=== PATIENT | female | born 1990 | race Caucasian/White ===

== ENCOUNTER 2021-07-11 00:50 | Emergency (ER) | payer OTHER ==
[2021-07-11 01:03] VITALS: BMI 26.4
[2021-07-11 02:44] VITALS: BP 112/73; PULSE 108; TEMP 98.3
[2021-07-11 04:17] LABS: PH,URINE 7.5 (5.0-8.0); URINE APPEARANCE CLEAR; URINE BILIRUBIN NEGATIVE (NEGATIVE); URINE COLOR YELLOW; URINE GLUCOSE (UA) NEGATIVE (NEGATIVE); URINE KETONE NEGATIVE (NEGATIVE); URINE LEUK ESTERASE NEGATIVE (NEGATIVE); URINE NITRITE NEGATIVE (NEGATIVE); URINE PROTEIN NEGATIVE (NEGATIVE); URINE UROBILINOGEN 0.2 mg/dL (0.2-1.0)
== END 2021-07-11 03:30 | disposition home or self-care (01) ==
LOC: JER 00:50
DX: O20.9 Hemorrhage in early pregnancy, unspecified (principal); Z3A.35 35 weeks gestation of pregnancy
CPT/HCPCS: 81003; 87086; 99283-25

== ENCOUNTER 2021-07-31 10:55 | Inpatient (IN) | payer OTHER ==
[2021-07-31] MEDS ORDERED: OXYTOCIN 20 UNITS in 0.9% NS 20 UNIT/1,000 ML INFUS.BAG IV ONE (11:50)
[2021-07-31] MEDS ORDERED: MISOPROSTOL 200 MCG TABLET ONE (12:06)
[2021-07-31] MEDS ORDERED: BISACODYL 10 MG SUPP.RECT RC PRN (12:26)
[2021-07-31] MEDS ORDERED: BENZOCAINE 28 GM HEMORRHOIDAL OINTMENT TP PRN (12:26)
[2021-07-31] MEDS ORDERED: ACETAMINOPHEN 325 MG TABLET (FP) PO PRN (12:26)
[2021-07-31] MEDS ORDERED: WITCH HAZEL 50% (TUCKS) 40 PAD/JAR PAD TP PRN (12:26)
[2021-07-31] MEDS ORDERED: BENZOCAINE 20% 57 GM BOTTLE TP PRN (12:26)
[2021-07-31] MEDS ORDERED: MISOPROSTOL 100 MCG TABLET PV ONE (12:28)
[2021-07-31] MEDS ORDERED: OXYTOCIN 20 UNITS in 0.9% NS 20 UNIT/1,000 ML INFUS.BAG IV SCH (12:30)
[2021-07-31] MEDS ORDERED: ELECTROLYTE-148 SOLN 1,000 ML IV SCH (12:30)
[2021-07-31 12:57] LABS: BASO % 0.4 % (0-2.0); EOS % 1.2 % (0-4.5); HEMATOCRIT 39.8 % (32.4-45.2); HEMOGLOBIN 13.1 GM/dL (10.7-15.3); LYMPH % 30.7 % (8-40); MCHC 32.8 g/dl (32.0-36.0); MEAN CELL VOLUME 91.4 fl (80-96); MEAN PLT VOLUME 9.6 fl (7.5-11.1); MONO % 6.3 % (3.8-10.2); NEUT % 61.4 % (42.8-82.8); PLATELET COUNT 166 10^3/uL (134-434); RBC 4.35 M/mm3 (3.60-5.2); RDW 13.1 % (11.6-15.6); WHITE BLOOD COUNT 6.8 K/mm3 (4.0-10.0)
[2021-07-31 12:59] LABS: CORD BASE EXCESS -3.9 mmol/L (0-2); CORD HCO3 22.7 mmHg (20-29); CORD PCO2 46.9 mmHg (30-78); CORD pH 7.303 (7.14-7.44)
[2021-07-31 13:09] LABS: CORD BASE EXCESS -8.4 mmol/L (0-2); CORD HCO3 19.8 mmHg (20-29); CORD PCO2 50.8 mmHg (30-78); CORD pH 7.208 (7.14-7.44)
[2021-07-31 13:19] LABS: INR 0.97 (0.83-1.09); PROTHROMBIN TIME (PATIENT) 11.1 SEC (9.7-13.0)
[2021-07-31 13:22] LABS: ACTIVATED PTT 29.5 SECONDS (25.2-36.5)
[2021-07-31 13:29] LABS: CALCIUM 9.2 mg/dL (8.5-10.1)
[2021-07-31 13:30] LABS: BLOOD UREA NITROGEN 6.4 mg/dL (7-18)
[2021-07-31 13:33] LABS: CREATININE 0.6 mg/dL (0.55-1.3)
[2021-07-31] MEDS: IBUPROFEN 600 MG TABLET (FP) PO PRN (15:09)
[2021-08-01] MEDS: IBUPROFEN 600 MG TABLET (FP) PO PRN ×2 (06:19→17:47)
[2021-08-01 07:45] LABS: BASO % 0.3 % (0-2.0); EOS % 1.2 % (0-4.5); HEMATOCRIT 36.3 % (32.4-45.2); LYMPH % 26.8 % (8-40); MCH 30.3 pg (25.7-33.7); MCHC 33.1 g/dl (32.0-36.0); MEAN CELL VOLUME 91.4 fl (80-96); MEAN PLT VOLUME 9.6 fl (7.5-11.1); MONO % 7.5 % (3.8-10.2); NEUT % 64.2 % (42.8-82.8); PLATELET COUNT 171 10^3/uL (134-434); RBC 3.97 M/mm3 (3.60-5.2); RDW 13.1 % (11.6-15.6); WHITE BLOOD COUNT 9.4 K/mm3 (4.0-10.0)
[2021-08-01] MEDS ORDERED: SENNOSIDES/DOCUSATE COMBO (SENNA PLUS) TABLET (UD) PO PRN (22:00)
[2021-08-02] MEDS: IBUPROFEN 600 MG TABLET (FP) PO PRN (08:50)
[2021-08-02 10:57] VITALS: BP 102/64; PULSE 63; TEMP 98.3
== END 2021-08-02 13:00 | disposition home or self-care (01) | DRG 560 ==
LOC: JLDR 10:55 → J3W 15:04
PROVIDERS: ADMIT Student in an Organized Health Care Education/Training Program; ATTEND Student in an Organized Health Care Education/Training Program
PROC: 10E0XZZ Delivery of Products of Conception, External Approach (ICD-10-PCS; principal; 2021-07-31)
DX: O62.3 Precipitate labor (principal); Z3A.38 38 weeks gestation of pregnancy; Z37.0 Single live birth
CPT/HCPCS: 36415; 36600; 59409; 80048; 82803; 85025; 85610; 85730; 86780; 86850; 86900; 86901; C9803; U0003; U0005